=== PATIENT | female | born 1960 | race Caucasian/White ===

== ENCOUNTER 2016-09-19 06:21 | Outpatient (CLI) | payer OTHER ==
[~2016-09-19] VITALS: Ht 175.3 cm; Wt 96.8 kg
[~2016-09-19 06:21] MED LIST: CEFU250S PO; FERR-74 PO; HYDR-3731 PO; HYDR-3820 PO; IBUP-2055 PO; METHIMAZOLE PO; METO50TA7 PO; PRD20T PO
--- OUTSIDE RECORDS SUMMARY | 2016-09-19 06:24 | XMS REPORT | Continuity of Care Document ---
Author Author [facility] Organization [facility] Address Unknown Phone Unavailable Care Team Providers Care Plastic Parts Designer Name Role Phone PCP Unavailable Source Comments Some departments are not documenting in the electronic medical record. If you do not see the information that you expected, contact Release of Information in the Health Information Management department at [phone] for further assistance in locating additional records.[facility] Active Allergies and Adverse Reactions Not on File Current Medications Not on file Active Problems Not on file Social History Tobacco Use Types Packs/Day Years Used Date Never Assessed Plan of Care Health Maintenance Due Date Last Done Comments Physical (Comprehensive) 1968 Exam Pertussis Vaccine 1972 Tetanus Vaccine 1978 Cervical Cancer Screening 1982 Breast Cancer Screening 2001 Colorectal Cancer 2011 Screening Influenza Vaccine 05/11/2016 Results from Last 3 Months Not on file
[2016-09-19] MEDS ORDERED: DOCU100T7 PO (14:11)
== END 2016-09-19 14:16 ==
LOC: PREOP 06:21
PROVIDERS: ATTEND Otolaryngology Otolaryngology/Facial Plastic Surgery
DX: Z01.818 Encounter for other preprocedural examination (principal); K11.5 Sialolithiasis

== ENCOUNTER 2016-09-21 07:16 | Day surgery (SDC) | payer OTHER ==
[~2016-09-21] VITALS: Ht 175.3 cm; Wt 96.8 kg
[~2016-09-21 07:16] MED LIST changes: +DOCU100T7 PO
--- OUTSIDE RECORDS SUMMARY | 2016-09-21 07:20 | XMS REPORT | Continuity of Care Document ---
Author Author [facility] Organization [facility] Address Unknown Phone Unavailable Care Team Providers Care Sap Bobj Developer Name Role Phone PCP Unavailable Source Comments Some departments are not documenting in the electronic medical record. If you do not see the information that you expected, contact Release of Information in the Health Information Management department at [phone] for further assistance in locating additional records.[facility] Active Allergies and Adverse Reactions Not [...]
--- OUTSIDE RECORDS SUMMARY | 2016-09-21 07:21 | XMS REPORT | Continuity of Care Document ---
Author Author [facility] Organization [facility] Address Unknown Phone Unavailable Care Team Providers Care Epic Prelude Analyst Name Role Phone PCP Unavailable Source Comments Some departments are not documenting in the electronic medical record. If you do not see the information that you expected, contact Release of Information in the Health Information Management department at [phone] for further assistance in locating additional records.[facility] Active Allergies and Adverse Reactions Not [...]
[2016-09-21 07:43] LABS: BASOPHILS % (AUTO) 0 % (0-10); EOSINOPHILS % (AUTO) 0 % (0-10); LYMPHOCYTES # (AUTO) 1.4 X 10^3 (1.0-4.0); LYMPHOCYTES % (AUTO) 28 % (12-44); MEAN CORPUSCULAR HEMOGLOBIN 20 PG (25-34); MEAN CORPUSCULAR HGB CONC 29 G/DL (32-36); MEAN CORPUSCULAR VOLUME 69 FL (80-99); MEAN PLATELET VOLUME 9.1 FL (7.4-10.4); MONOCYTES # (AUTO) 0.3 X 10^3 (0.0-1.0); MONOCYTES % (AUTO) 6 % (0-12); NEUTROPHILS # (AUTO) 3.4 X 10^3 (1.8-7.8); NEUTROPHILS % (AUTO) 66 % (42-75); PLATELET COUNT 304 10^3/uL (130-400); RED BLOOD COUNT 4.57 10^6/uL (4.35-5.85); WHITE BLOOD COUNT 5.2 10^3/uL (4.3-11.0)
[2016-09-21] MEDS: LACTATED RINGERS 1,000 ML IV PRN ×2 (07:45→09:45)
--- NOTE | 2016-09-21 07:58 | Progress Note-Pre Operative ---
Pre-Operative Progress Note H&P Reviewed The H&P was reviewed, patient examined and no changes noted. Date H&P Reviewed: Sep 21, 2016 Time H&P Reviewed: 07:50 Pre-Operative Diagnosis: Right Submandibular Duct Stone ALLISON RENNER MD Sep 21, 2016 7:58 am
[2016-09-21] MEDS ORDERED: LIDOCAINE/EPI 1%-1:100,000 (XYLOCAINE) 20ML ONE (08:05)
[2016-09-21] MEDS ORDERED: MUPIROCIN 2% OINT 22 GM (BACTROBAN) TUBE ONE (08:05)
[2016-09-21 08:06] LABS: ANION GAP 11 MMOL/L (5-14); BLOOD UREA NITROGEN 11 MG/DL (7-18); BUN/CREATININE RATIO 16; CALCIUM 9.3 MG/DL (8.5-10.1); CARBON DIOXIDE 22 MMOL/L (21-32); CHLORIDE 109 MMOL/L (98-107); CREATININE SERUM 0.69 MG/DL (0.60-1.30); GFR ESTIMATED > 60; GLUCOSE 91 MG/DL (70-105); POTASSIUM 3.7 MMOL/L (3.6-5.0); SODIUM 142 MMOL/L (135-145)
[2016-09-21] MEDS ORDERED: ONDANSETRON 4 MG/2 ML (SDV) Z0FRAN ONE ×2 (08:16→10:39)
[2016-09-21] MEDS ORDERED: DEXAMETHASONE PF 10 MG/ML (DECADRON) VIAL ONE ×2 (08:16→09:39)
[2016-09-21] MEDS ORDERED: MIDAZOLAM 2 MG/2 ML (VERSED) VIAL ONE (08:16)
[2016-09-21] MEDS ORDERED: LIDOCAINE PF 2% 10 ML (XYLOCAINE) AMP ONE (08:16)
[2016-09-21] MEDS ORDERED: proPOfol 200 MG/20 ML (DIPRIVAN) VIAL IV ONE (08:16)
[2016-09-21] MEDS ORDERED: fentaNYL INJECTION 100 MCG/2 ML AMP ONE ×2 (08:17→09:58)
[2016-09-21] MEDS ORDERED: SEVOFLURANE (ULTANE) 15 ML INHAL SOLN ONE ×5 (08:23→10:21)
[2016-09-21] MEDS ORDERED: LACTATED RINGERS 1,000 ML IV ONE ×2 (08:23→10:21)
[2016-09-21 08:27] VITALS: BP 148/86
[2016-09-21] MEDS ORDERED: GLYCOPYRROLATE 0.2 MG/ML (ROBINUL) 2 ML VIAL ONE (10:04)
[2016-09-21] MEDS ORDERED: NEOSTIGMINE (BLOXIVERZ ) 1 MG/1ML 10 ML VIAL ONE (10:04)
[2016-09-21] MEDS ORDERED: NS IV 1000 ML 1,000 ML IV SCH (10:12)
--- NOTE | 2016-09-21 10:12 | Progress Note-Post Operative ---
Post-Operative Progess Note Pre-Operative Diagnosis Right Submandibular Duct Stone Post-Operative Diagnosis same Post-Op Procedure Note Date of Procedure: Sep 21, 2016 Name of Procedure: Intraoral Excision of Right Submandibular Duct STone Anesthesia Type get Estimated blood loss (mL): minimal Specimen(s) collected Right Submandibular Duct STone ALLISON RENNER MD Sep 21, 2016 10:12 am
[2016-09-21] MEDS ORDERED: HYDROcodone/APAP 5 MG/325 MG (LORTAB) TAB PO PRN (10:15)
[2016-09-21] MEDS ORDERED: APAP 325 MG/10.15 ML LIQ (TYLENOL) UDC PO PRN (10:15)
[2016-09-21] MEDS ORDERED: LIDOCAINE/EPI 1%-1:100,000 (XYLOCAINE) 20ML INJ ONE (10:30)
[2016-09-21] MEDS ORDERED: MEPERIDINE (DEMEROL) INJ 50 MG/ML IV PRN (10:45)
[2016-09-21] MEDS ORDERED: PROMETHAZINE INJ 25 MG/ML (PHENERGAN) AMP IV PRN (10:45)
[2016-09-21] MEDS ORDERED: ONDANSETRON 4 MG/2 ML (SDV) Z0FRAN IV PRN (10:45)
[2016-09-21] MEDS ORDERED: morphine INJ 10 MG/ML 1ML (SYR OR VIAL) IV PRN (10:45)
[2016-09-21] MEDS ORDERED: fentaNYL INJECTION 250 MCG/5 ML AMP IV PRN (10:45)
[2016-09-21 11:20] VITALS: BP 160/92
[2016-09-21 11:50] VITALS: BP 152/85
[2016-09-21 12:20] VITALS: BP 142/78
[2016-09-21 13:45] VITALS: BP 142/78
== END 2016-09-21 13:45 | disposition home or self-care (01) ==
LOC: SDC 07:16
PROVIDERS: ATTEND Otolaryngology Otolaryngology/Facial Plastic Surgery
DX: K11.5 Sialolithiasis (principal)
CPT/HCPCS: 36415; 80048; 84703; 85025; 87081

== ENCOUNTER → 2017-07-23 | Outpatient (CLI) | payer OTHER ==
[~2017-07-23] MED LIST changes: +BARIUM SUSPENSION 2.1% (VANILLA SILQ) 450 ML PO ONE; +CATHETER FLUSH 10 ML SYR IV PRN; +IOHEXOL 350 MG/ML 100 ML (OMNIPAQUE 350) VIAL IV ONE; +NS 100 ML (IVPB) BAG IV ONE
--- NOTE | 2017-07-23 16:18 | Diagnostic Imaging Report ---
PROCEDURE: CT chest, abdomen, and pelvis with contrast. TECHNIQUE: Multiple contiguous axial images were obtained through the chest, abdomen, and pelvis after the administration of intravenous contrast. INDICATION: Pelvic mass. Bilateral ovarian cysts. 100 mL of Omnipaque 350 is administered intravenously. FINDINGS: CT chest: The lungs demonstrate no significant consolidation, mass, or suspicious nodule. The heart size is at the upper limits of normal. No effusion or pneumothorax. The thoracic aorta is normal in caliber. There is anterior mediastinal soft tissue density which appears to represent thymic tissue. 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 No mass effect or focal mass to suggest a thymic neoplasm. There is otherwise no mediastinal lymphadenopathy. No hilar or axillary lymphadenopathy. The osseous structures appear grossly unremarkable. CT abdomen and pelvis: There is a hypodense lesion in the lower aspect of segment IVb in the liver measuring 8 mm in size, too small to accurately characterize. The gallbladder, the spleen, and the adrenal glands appear unremarkable. The pancreas appears unremarkable. The kidneys have symmetric enhancement and contrast excretion. There is no hydronephrosis. There is a fat-density lesion measuring 1.4 cm in the lower pole of the left kidney suggestive of angiomyolipoma. The abdominal aorta is normal in caliber. No para-aortic significantly enlarged lymph node is seen. In the pelvis, there is a large mass abutting the anterior margin of the uterus measuring 11 x 10 x 10 cm likely representing a fibroid. There is suggestion of bilateral minimally prominent ovarian follicles. The appendix appears normal. No bowel obstruction. No significant free fluid or fluid collection in the abdomen or pelvis is seen. There is a tiny fat-containing umbilical hernia. The osseous structures demonstrate mild facet joint arthropathy in the mid and lower lumbar spine. 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 CT abdomen and pelvis: 1. A 11 cm uterine mass abutting the anterior margin of the uterus is probably a large fibroid. 2. Tiny fat-containing umbilical hernia. Dictated by: Dictated on workstation # [id number]
== END ==
LOC: RAD 13:26
PROVIDERS: ATTEND Obstetrics & Gynecology
DX: N85.8 Other specified noninflammatory disorders of uterus (principal); R92.8 Other abnormal and inconclusive findings on diagnostic imaging of breast
CPT/HCPCS: 71260; 74177

== ENCOUNTER → 2017-07-31 | Outpatient (CLI) | payer OTHER ==
[~2017-07-31] MED LIST changes: -BARIUM SUSPENSION 2.1% (VANILLA SILQ) 450 ML PO ONE; -CATHETER FLUSH 10 ML SYR IV PRN; -IOHEXOL 350 MG/ML 100 ML (OMNIPAQUE 350) VIAL IV ONE; -NS 100 ML (IVPB) BAG IV ONE
== END ==
LOC: RAD 08:33
PROVIDERS: ATTEND Obstetrics & Gynecology
DX: Z12.31 Encounter for screening mammogram for malignant neoplasm of breast (principal)
CPT/HCPCS: 77067

== ENCOUNTER → 2017-08-03 | Outpatient (CLI) | payer OTHER ==
--- NOTE | 2017-08-03 11:28 | Diagnostic Imaging Report ---
PROCEDURE: CT abdomen and pelvis without contrast. TECHNIQUE: Multiple contiguous axial images were obtained through the abdomen and pelvis without the use of intravenous contrast. INDICATION: Hematuria. COMPARISON: Comparison with 07/23/2017, contrasted study. FINDINGS: Noncontrasted study shows no evidence of hydronephrosis. Renal outlines are smooth with no perinephric fluid. No hydronephrosis. No calculi are seen. Calcification noted in the proximal pelvis on the right was demonstrated to be a phlebolith extrinsic to the right ureter. Large pelvic mass is again noted as described previously, again most likely representing large uterine fibroid. Bladder appears normal. The lung bases are clear. The abdominal organs and vessels are unchanged when compared with 07/23/2017 exam. The appendix remains normal. Bowel gas pattern is normal. IMPRESSION: No significant change has occurred when compared with 07/23/2017 exam. Dictated by: Dictated on workstation # [id number]
== END ==
LOC: RAD 09:26
PROVIDERS: ATTEND Urology
DX: R31.9 Hematuria, unspecified (principal)
CPT/HCPCS: 74176

== ENCOUNTER 2017-08-15 05:32 | Outpatient (CLI) | payer OTHER ==
[~2017-08-15] VITALS: Ht 175.3 cm; Wt 86.0 kg
[2017-08-15 12:13] VITALS: BP 154/89
[2017-08-15 13:04] LABS: BASOPHILS % (AUTO) 0 % (0-10); EOSINOPHILS % (AUTO) 0 % (0-10); LYMPHOCYTES # (AUTO) 2.1 X 10^3 (1.0-4.0); LYMPHOCYTES % (AUTO) 35 % (12-44); MEAN CORPUSCULAR HEMOGLOBIN 27 PG (25-34); MEAN CORPUSCULAR HGB CONC 34 G/DL (32-36); MEAN CORPUSCULAR VOLUME 79 FL (80-99); MEAN PLATELET VOLUME 10.8 FL (7.4-10.4); MONOCYTES # (AUTO) 0.6 X 10^3 (0.0-1.0); MONOCYTES % (AUTO) 10 % (0-12); NEUTROPHILS # (AUTO) 3.3 X 10^3 (1.8-7.8); NEUTROPHILS % (AUTO) 55 % (42-75); PLATELET COUNT 202 10^3/uL (130-400); RED BLOOD COUNT 5.13 10^6/uL (4.35-5.85); RED CELL DISTRIBUTION WIDTH 13.2 % (10.0-14.5); WHITE BLOOD COUNT 5.9 10^3/uL (4.3-11.0)
== END 2017-08-15 13:15 | disposition home or self-care (01) ==
LOC: PREOP 05:32
PROVIDERS: ATTEND Obstetrics & Gynecology
DX: Z01.812 Encounter for preprocedural laboratory examination (principal); Z11.2 Encounter for screening for other bacterial diseases; N81.4 Uterovaginal prolapse, unspecified; N39.3 Stress incontinence (female) (male); D64.9 Anemia, unspecified
CPT/HCPCS: 36415; 85025; 86850; 86900; 86901; 87081

== ENCOUNTER → 2017-08-15 | Outpatient (CLI) | payer OTHER ==
--- NOTE | 2017-08-15 08:43 | Diagnostic Imaging Report ---
EXAMINATION: Right breast ultrasound. INDICATION: New calcifications in the upper central aspect of the right breast. FINDINGS: There is a simple appearing cyst measuring 1.3 cm in size located at the 1:30 o'clock position 5 cm from the nipple. The retroareolar region and 4 quadrants demonstrate no suspicious lesion otherwise. IMPRESSION: No suspicious mass. The new calcifications in the upper central aspect of the right breast are indeterminate. A stereotactic biopsy is recommended for the low suspicion of malignancy. The report was faxed to the office of Dr. Hays by OLGA LIDIA@8:45 AM. ACR BI-RADS Category 4A: Low suspicion of malignancy Dictated by: Dictated on workstation # [id number]
--- NOTE | 2017-08-15 10:12 | Diagnostic Imaging Report ---
EXAMINATION: Right breast diagnostic mammogram with tomography evaluation. The current study was also evaluated with a Computer Aided Detection (CAD) system. INDICATION: Evaluate calcifications of the central slightly superior aspect of the right breast. FINDINGS: Compression magnification views demonstrate clustered calcifications in the superior central aspect of the right breast. No definite underlying mass is seen. There is no significant heterogeneity. IMPRESSION: Indeterminate clustered microcalcifications in the central slightly superior aspect of the right breast. An ultrasound evaluation is pending. ACR BI-RADS Category 0: Incomplete. (Needs additional imaging evaluation). Result letter will be mailed to the patient. Note: At least 10% of breast cancer is not imaged by mammography. Dictated by: Dictated on workstation # [id number]
== END ==
LOC: RAD 07:19
PROVIDERS: ATTEND Obstetrics & Gynecology
DX: R92.8 Other abnormal and inconclusive findings on diagnostic imaging of breast (principal)
CPT/HCPCS: 76641

== ENCOUNTER 2017-08-24 09:25 | Day surgery (SDC) | payer OTHER ==
[~2017-08-24] VITALS: Ht 175.3 cm; Wt 86.0 kg
[2017-08-24 09:30] VITALS: BP 151/84
[2017-08-24] MEDS: LACTATED RINGERS 1,000 ML IV PRN ×2 (09:50→11:30)
[2017-08-24] MEDS ORDERED: CATHETER FLUSH 10 ML SYR IV PRN (10:00)
[2017-08-24] MEDS ORDERED: ceFAZolin 1 GM/NS 50 ML IVPB IV ONE ×2 (10:00)
[2017-08-24] MEDS ORDERED: ONDANSETRON 4 MG/2 ML (SDV) Z0FRAN ONE (10:05)
[2017-08-24] MEDS ORDERED: MIDAZOLAM 2 MG/2 ML (VERSED) VIAL ONE (10:05)
[2017-08-24] MEDS ORDERED: ROCURONIUM 50 MG/5 ML (ZEMURON) VIAL IV ONE ×3 (10:05→12:49)
[2017-08-24] MEDS ORDERED: fentaNYL INJECTION 100 MCG/2 ML AMP ONE ×4 (10:05→13:18)
[2017-08-24] MEDS ORDERED: LIDOCAINE PF 2% 5 ML (XYLOCAINE) VIAL ONE (10:05)
[2017-08-24] MEDS ORDERED: proPOfol 200 MG/20 ML (DIPRIVAN) VIAL IV ONE (10:05)
[2017-08-24] MEDS ORDERED: SEVOFLURANE (ULTANE) 15 ML INHAL SOLN ONE ×10 (10:07→13:11)
[2017-08-24 10:08] LABS: BASOPHILS % (AUTO) 0 % (0-10); EOSINOPHILS % (AUTO) 0 % (0-10); LYMPHOCYTES # (AUTO) 1.9 X 10^3 (1.0-4.0); LYMPHOCYTES % (AUTO) 23 % (12-44); MEAN CORPUSCULAR HEMOGLOBIN 27 PG (25-34); MEAN CORPUSCULAR HGB CONC 34 G/DL (32-36); MEAN CORPUSCULAR VOLUME 79 FL (80-99); MEAN PLATELET VOLUME 10.7 FL (7.4-10.4); MONOCYTES # (AUTO) 0.5 X 10^3 (0.0-1.0); MONOCYTES % (AUTO) 7 % (0-12); NEUTROPHILS # (AUTO) 5.7 X 10^3 (1.8-7.8); NEUTROPHILS % (AUTO) 70 % (42-75); PLATELET COUNT 183 10^3/uL (130-400); RED BLOOD COUNT 4.76 10^6/uL (4.35-5.85); RED CELL DISTRIBUTION WIDTH 12.6 % (10.0-14.5); WHITE BLOOD COUNT 8.1 10^3/uL (4.3-11.0)
[2017-08-24] MEDS ORDERED: BUP/EPI 0.5% 1:200,000 (MARCAINE) 10ML VIAL IJ ONE (10:16)
[2017-08-24] MEDS ORDERED: ESTRADIOL VAGINAL CREAM 42.5 GM (ESTRACE) VG ONE (10:16)
[2017-08-24] MEDS ORDERED: ceFAZolin INJECTION 1,000 MG in NS (IVPB) 50 ML IV ONE (10:45)
--- NOTE | 2017-08-24 10:45 | Progress Note-Pre Operative ---
Pre-Operative Progress Note H&P Reviewed The H&P was reviewed, patient examined and no changes noted. Date Seen by Provider: Aug 24, 2017 Time Seen by Provider: 10:44 Date H&P Reviewed: Aug 24, 2017 Time H&P Reviewed: 10:44 Pre-Operative Diagnosis: complex pelvic mass/uterovaginal prolapse/stress incontinence JASON GALVEZ MD Aug 24, 2017 10:45 am
--- NOTE | 2017-08-24 10:46 | Progress Note-Post Operative ---
Post-Operative Progess Note Surgeon (s)/Assembly Technician (s) Surgeon JASON GALVEZ MD Assembly Technician: Velia Michel Pre-Operative Diagnosis complex pelvic mass/uterovaginal prolapse/stress incontinence Post-Operative Diagnosis ssame with pathology pending Procedure & Operative Findings Date of Procedure 08/24/17 Procedure Performed/Findings total laparoscopic hysterectomy/BSO/A&P repair Anesthesia Type Gen. Estimated Blood Loss Estimated blood loss (mL): 450cc Specimens/Packing Specimens Removed uterus/tubes/ovaries Packing: Kerlix to the vagina JASON GALVEZ MD Aug 24, 2017 10:46
[2017-08-24] MEDS ORDERED: IBUP-1780 PO (10:49)
[2017-08-24] MEDS ORDERED: OXYC-465 PO (10:49)
[2017-08-24] MEDS ORDERED: ESTR1TAB27 PO (10:49)
--- NOTE | 2017-08-24 10:51 | Discharge Instructions ---
Discharge Instructions Discharge Medications New, Converted or Re-Newed RX: RX on Chart Patient Instructions Patient Instructions: aas directed Return to The Hospital For: as directed Activity & Diet Discharge Diet: No Restrictions Activity as Tolerated: Yes Orders-Post D/C & Referrals Follow Up Appt: return to clinic on Sunday, August 27, 2017 at 930 a.m. for staple removal Call to make follow up appt. for patient in 4 weeks. follow-up with Dr. Nick per his instructions Activity: Rest for 24 hours, than as tolerated. Wound Care: May remove Band-Aid tomorrow. Replace as desired. Keep incisions clean and dry. Wash daily with soap and water. Please call in RX to patient pharmacy. Diet: As tolerated-Clear Liquids only if nauseated. May shower or tub bathe as desired. No driving for 24 hours, no alcoholic beverages for 24 hours, and nothing per vagina (no tampons, douching, or intercourse) for 2 weeks. Patient to return to the clinic as soon as possible for: Temperature greater than 101F, Severe Pain, Foul discharge from incision or vagina, Excessive Bleeding (more than a period). JASON GALVEZ MD Aug 24, 2017 10:51 am
[2017-08-24] MEDS ORDERED: MEPERIDINE (DEMEROL) INJ 100 MG/ML IM PRN (11:00)
[2017-08-24] MEDS ORDERED: KETOROLAC 30 MG/ML VIAL IVP SCH (11:00)
[2017-08-24] MEDS ORDERED: ESTROGENS CONJ IV 25 MG/5 ML (PREMARIN) VIAL IVP ONE (11:00)
[2017-08-24] MEDS ORDERED: oxyCODONE/APAP 10/325MG (PERCOCET 10) TABLET PO PRN (11:00)
[2017-08-24] MEDS ORDERED: WATER (STERILE) FOR INJ 10 ML BTL INJ ONE (11:00)
[2017-08-24] MEDS ORDERED: BENZOCAINE/MENTHOL (DERMOPLAST) 56 ML CAN TP PRN (11:00)
[2017-08-24] MEDS ORDERED: ONDANSETRON 4 MG/2 ML (SDV) Z0FRAN IVP PRN ×2 (11:00→14:00)
[2017-08-24] MEDS ORDERED: PROMETHAZINE INJ 25 MG/ML (PHENERGAN) AMP IM PRN (11:00)
[2017-08-24] MEDS ORDERED: meTOprolol 5 MG/5 ML (LOPRESSOR) VIAL ONE (11:59)
[2017-08-24] MEDS ORDERED: NEOSTIGMINE (BLOXIVERZ ) 1 MG/1ML 10 ML VIAL ONE (13:09)
[2017-08-24] MEDS ORDERED: GLYCOPYRROLATE 0.2 MG/ML (ROBINUL) 2 ML VIAL ONE (13:09)
[2017-08-24] MEDS ORDERED: DEXAMETHASONE 10 MG/ML (DECADRON) 1 ML VIAL ONE (13:12)
[2017-08-24] MEDS ORDERED: KETOROLAC 30 MG/ML VIAL ONE (13:17)
[2017-08-24] MEDS ORDERED: WATER (STERILE) FOR INJECTION 10 ML ONE (13:18)
[2017-08-24] MEDS ORDERED: ESTROGENS CONJ IV 25 MG/5 ML (PREMARIN) VIAL ONE (13:18)
[2017-08-24] MEDS ORDERED: morphine INJ 10 MG/ML 1ML (SYR OR VIAL) ONE (13:20)
[2017-08-24] MEDS ORDERED: MEPERIDINE (DEMEROL) INJ 50 MG/ML IVP PRN (14:00)
[2017-08-24] MEDS: morphine INJ 10 MG/ML 1ML (SYR OR VIAL) IVP PRN ×2 (14:00→14:10)
[2017-08-24] MEDS ORDERED: PROMETHAZINE INJ 25 MG/ML (PHENERGAN) AMP IVP PRN (14:00)
[2017-08-24] MEDS ORDERED: HYDROmorphone (DILAUDID) 2 MG/ML VIAL IVP PRN (14:00)
[2017-08-24 15:00] VITALS: BP 146/86
[2017-08-24] MEDS: D5 LR IV SOLUTION 1,000 ML IV SCH ×3 (15:00→23:12)
[2017-08-24] MEDS ORDERED: D5 LR IV SOLUTION 1,000 ML IV ONE (15:14)
[2017-08-24 18:04] VITALS: BP 147/89
[2017-08-24 20:00] VITALS: BP 143/73
[2017-08-24] MEDS: KETOROLAC 30 MG/ML VIAL IVP SCH (20:08)
--- NOTE | 2017-08-24 22:28 | OPERATIVE REPORT ---
DATE OF SERVICE: 08/24/2017 PREOPERATIVE DIAGNOSIS: On my part, urinary incontinence. POSTOPERATIVE DIAGNOSIS: On my part, urinary incontinence. OPERATION PERFORMED: Pubovaginal sling and cystoscopy. SURGEON: Shay Cullen MD. YOUTH DIRECTOR: Todd Hays MD. ANESTHESIA: General. COMPLICATIONS: None. PROCEDURE: Under satisfactory general anesthesia and after Dr. Hays performed the first part of his surgery that he will dictate, I went ahead and inserted a Hernandez catheter, draining clear urine. I passed the Solyx device over the sling on both sides using the described technique. The sling was sitting nicely under the mid urethra. There was no twisting, no tension and passage of a curved hemostat easily between it and the underlying tissue. I removed the Hernandez catheter, performed cystoscopy to confirm the integrity of the bladder, ureters, urethra and no foreign body. I left the bladder over half fold to perform a manual Valsalva maneuver that was negative. I reinserted the catheter. Estimated blood loss for my part negligible and Dr. Hays proceeded with the rest of his surgery that he will dictate. Job ID: [id number] DocumentID: [id number] Dictated Date: 08/24/2017 13:17:43 Merchandise Presentation Associate Date: 08/24/2017 22:01:50 Dictated By: SHAY CULLEN MD
[2017-08-25 00:15] VITALS: BP 139/65
--- NOTE | 2017-08-25 00:29 | OPERATIVE REPORT ---
DATE OF SERVICE: 08/24/2017 PREOPERATIVE DIAGNOSES: Dysfunctional uterine bleeding and uterovaginal prolapse and stress urinary incontinence and large pelvic mass. POSTOPERATIVE DIAGNOSES: Dysfunctional uterine bleeding and uterovaginal prolapse and stress urinary incontinence and large pelvic mass with likely large fibroid and pathology pending. OPERATIVE PROCEDURE: Total laparoscopic hysterectomy with bilateral salpingo-oophorectomy, anterior and posterior vaginal repairs with enterocele repair as well as Dr. Nick performing a pubovaginal sling and cystoscopy. OPERATIVE DESCRIPTION: With the patient in the supine position under satisfactory general anesthesia, she was repositioned in dorsal lithotomy position in the [facility] and prepped and draped in the usual fashion for abdominal and vaginal surgery. Hernandez catheter was placed in the urinary bladder. Speculum was placed in the vagina, cervix exposed and grasped anteriorly with single tooth tenaculum. The cervix was dilated with Leon dilators and then a Neena II manipulator was placed in the usual manner with #1 Vicryl sutures at 3 and 9 o'clock position of the cervix to affix the uterus to the manipulator and with a 6 mm x 8 cm uterine probe and a 30 mm colpotomy ring. The cervix prolapsed completely outside the introitus. The bladder prolapsed just outside the introitus as well. The patient was brought in low dorsolithotomy position. A 12 mm incision made at 3 cm superior to the umbilicus, 8 mm incisions were made 9 cm lateral to the umbilicus on each side. All incision sites were infiltrated with 0.25% Marcaine with epinephrine prior to incision. Veress needle was placed through the midline incision. The abdomen insufflated with 2.4 liters of carbon dioxide. Veress needle was removed and the laparoscopic ports were placed in the usual manner. Laparoscope was introduced. Two other ports were placed under direct vision after the laparoscope was in. The patient was placed in Trendelenburg allowing the bowel to spill up out of the pelvis. The operative instruments were prepared and attached and hysterectomy was initiated by first examining the pelvis. This was somewhat difficult because there was an exceedingly large uterine fibroid on the fundus of the uterus. That could be swept to one side, anterior or posterior, the balance of the pelvis looked normal as did the ovaries. A fourth port was placed between the midline port and the right port for the manipulator for the insurance sales assistant to use with help to position and retract the big uterus. Using a vessel sealer, the right fallopian tube and ovary were grasped and elevated. The ureter was seen medial to the IP ligament. The IP ligament was clamped, cauterized and divided and was continued stepwise across the mesovarium to the round ligament across the broad ligament down to the cardinal ligament, which was all treated in the same manner. The same procedure performed on the left. There was some manipulation required in order to distribute the uterus in a manner that would allow access to each side of the uterus. The uterus was now retroverted. The anterior lower uterine segment exposed and using a monopolar shear, the bladder peritoneum was opened and the bladder carefully dissected down off the lower uterine segment. A colpotomy incision was started at 12 o'clock position and continued circumferentially until the entire colpotomy ring was exposed. Again, this required some positioning and manipulation secondary to the very large bundle likely fibroid, pathology of courses spinning on that. The uterus once completely free, it was extracted through the vagina. Again, this was somewhat complicated due to the large fibroid, but with gentle and persistent manipulation, the uterus was milked out through the vagina. The vaginal cuff was then closed with 3 sutures of V-Loc barbed sutures starting first on the right angle and continuing almost to the midpoint and from the left angle almost to the midpoint and from the midpoint closing the balance of the cuff with a third suture and reapproximating the bladder peritoneum over the suture. Care was taken to include the terminus of the uterine vessels on each side with the initiation of the suture that started on each side of the vaginal cuff. Care was also taken to advance the uterus, the vaginal cuff up onto the uterosacral ligaments bilaterally to elevate the apex of the vagina. The pelvis was irrigated and examined for hemostasis. With that being complete and seen both ureters peristalsing and being clear up the sutures and of the dissection we had done, the laparoscopic portion of the procedure was terminated. The operative instruments were removed as were the ports. The abdomen was evacuated of insufflating gas. The patient brought out of Trendelenburg. The skin incisions were stapled and the fascia at the umbilical incision was closed with a [id number] suture of 2-0 Vicryl. The patient now repositioned in the dorsal lithotomy position for vaginal portion of the surgery. Weighted speculum placed in the posterior fornix of the vagina. The anterior vaginal wall was grasped with two Chavez clamps. Incision was made in the vaginal wall in the midline and that was continued from the approximately a cm from urethral meatus to the apex of the vagina with very careful dissection was taken to separate and develop the vesicovaginal space. Sutures now of 2-0 Vicryl were used to plicate the endopelvic fascia and bladder wall, allowing the bladder back up into the pelvis, supporting the bladder neck. Dr. Nick assumed care of the patient at this point, placed his pubovaginal sling and performed a cystoscopy with no abnormal findings and then I resumed care of the patient. I had remained to assist with Dr. Nick's portion of the procedure. I resumed care, resected the redundant anterior vaginal wall muscularis and mucosa and then closed the vaginal wall with a running locked suture of 2-0 Vicryl. Hemostasis was complete. Good support was evident. Posterior repair was now affected by placing Chavez clamps on the perineum and the hymenal ring at 5 and 7 o'clock position. The inverted triangle of the skin was removed from the perineal body and upright triangle from the posterior vaginal floor. The rectovaginal space was entered sharply and bluntly dissected to the apex of the vagina where it was explored, finding a small enterocele that was reduced and then plicated with pursestring sutures of 2-0 Vicryl. The rectovaginal space was obliterated with additional sutures of 2-0 Vicryl. Perineal body was restored with 2-0 Vicryl. Redundant posterior vaginal wall muscularis and mucosa were removed sharply and the vaginal wall was closed with a running locked suture of 3-0 Vicryl Rapide and closure was continued past the hymenal ring down on the perineal body and then back up subcutaneous where it was tied at the hymenal ring. Digital rectal exam confirmed no stricture or stenosis of the rectum and no sutures into or through the rectal mucosa. The vagina was now filled with Estrace vaginal cream and a pack of Kerlix gauze was placed. Dr. Nick will place Hernandez catheter to dependent drains at the completion of his portion of the procedure that was remaining out to dependent drainage. The patient was uneventfully awakened from general anesthesia and transferred to recovery room in stable condition. Sponge and needle counts were correct. Estimated blood loss was around 400 mL, a bulk of that from the vaginal repairs as there was very minimal bleeding with the hysterectomy itself. The patient tolerated the procedure well. Job ID: [id number] DocumentID: [id number] Dictated Date: 08/24/2017 14:55:21 Power Generation Plant Operator Date: 08/25/2017 00:28:34 Dictated By: JASON GALVEZ MD
[2017-08-25] MEDS: KETOROLAC 30 MG/ML VIAL IVP SCH (01:45)
[2017-08-25 04:00] VITALS: BP 134/67
[2017-08-25] MEDS ORDERED: SIMETHICONE 80 MG (MYLICON) CHEW ONE (07:56)
[2017-08-25] MEDS ORDERED: SIMETHICONE 80 MG (MYLICON) CHEW PO SCH (08:00)
[2017-08-25 08:03] VITALS: BP 146/81
[2017-08-25] MEDS ORDERED: IBUPROFEN 800 MG (MOTRIN) TAB PO ONE (08:33)
--- NOTE | 2017-08-25 08:39 | Progress Note-Standard ---
Standard Progress Note Progress Notes/Assess & Plan Date Seen by Provider: Aug 25, 2017 Time Seen by Provider: 08:38 Progress/Assessment & Plan this patient is without complaint except for some mild episodic nausea. She is ambulating, she is not voiding as of yet. Patient is tolerating by mouth adequately. Patient denies chest pain, denies shortness of breath, denies headache. Vital Signs Date Time Temp Pulse Resp B/P (MAP) Pulse Ox O2 Delivery O2 Flow Rate FiO2 08/25/17 08:03 99.8 104 20 146/81 (102) 97 Room Air 08/25/17 06:10 99.0 08/25/17 04:00 99.0 116 16 134/67 (89) 96 Room Air 08/25/17 01:40 99.1 08/25/17 00:15 100.8 111 16 139/65 (89) 97 Room Air 08/24/17 20:00 98.4 110 18 143/73 (96) Room Air 08/24/17 19:05 Room Air 08/24/17 18:04 98.5 109 18 147/89 (108) 98 Room Air 08/24/17 15:00 98.3 90 18 146/86 (106) 99 Room Air 08/24/17 14:00 97.8 08/24/17 09:30 97.8 101 18 151/84 (106) 97 Room Air I & O 08/25/17 07:00 Intake Total 5347 ml Output Total 1400 ml Balance 3947 ml Vital signs are stable. Patient is afebrile. The abdomen is benign. Bowel sounds are present. Extremities show no clubbing cyanosis. There is no Homans sign. Assessment and plan postoperative day number 1 doing well. Plan is for routine convalescence care today and discharge home when ambulating, voiding, tolerating by mouth well, and was good pain control. Final Diagnosis uterovaginal prolapse JASON GALVEZ MD Aug 25, 2017 8:39 am
[2017-08-25] MEDS ORDERED: DOCUSATE SODIUM 100 MG (COLACE) CAP PO SCH (09:00)
[2017-08-25] MEDS ORDERED: ESTRADIOL 1 MG TAB (ESTRACE) PO SCH (09:00)
--- NOTE | 2017-08-25 11:19 | Progress Note-Urology ---
Progress Note-Urology Progress Notes/Assess & Plan Progress/Assessment & Plan VOIDING WELL. FEELS EMPTY. DRY. HAPPY. PVR 118CC. HOME WITH INSTRUCTIONS Final Diagnosis INCONTINENCE SHAY CULLEN MD Aug 25, 2017 11:19 am
--- NOTE | 2017-08-25 12:31 | Anesthesia-General Post-Op ---
General Patient Condition Mental Status/LOC: Same as Preop Cardiovascular: Satisfactory Nausea/Vomiting: Absent Respiratory: Satisfactory Pain: Controlled Complications: Absent Post Op Complications Complications None Follow Up Care/Instructions Patient Instructions None needed. Anesthesia/Patient Condition Patient Condition Patient is doing well, no complaints, stable vital signs, no apparent adverse anesthesia problems. No complications reported per nursing. D/C home per [facility] [place] [facility] [place] Criteria: Yes JOHN MCALLISTER CRNA Aug 25, 2017 12:31
[2017-08-25] MEDS ORDERED: IBUPROFEN 800 MG (MOTRIN) TAB PO SCH (14:00)
== END 2017-08-25 12:10 | disposition home or self-care (01) ==
LOC: SDC 09:25 → WS 15:31 → SDC 08-25 12:10
PROVIDERS: ATTEND Obstetrics & Gynecology
DX: D25.1 Intramural leiomyoma of uterus (principal); D25.2 Subserosal leiomyoma of uterus; N80.0 Endometriosis of uterus; N83.201 Unspecified ovarian cyst, right side; N83.202 Unspecified ovarian cyst, left side; N83.8 Other noninflammatory disorders of ovary, fallopian tube and broad ligament; N72 Inflammatory disease of cervix uteri; N93.8 Other specified abnormal uterine and vaginal bleeding; N81.4 Uterovaginal prolapse, unspecified; N39.3 Stress incontinence (female) (male)
CPT/HCPCS: 36415; 85025; 94664

== ENCOUNTER → 2017-09-04 | Outpatient (CLI) | payer OTHER ==
[~2017-09-04] MED LIST changes: +ESTR1TAB27 PO; +IBUP-1780 PO; +LIDOCAINE 1% INJ 50 ML (XYLOCAINE) VIAL ONE; +OXYC-465 PO
--- NOTE | 2017-09-04 14:24 | Diagnostic Imaging Report ---
EXAMINATION: Vacuum-assisted stereotactic breast biopsy , with clip placement, and specimen radiographs. INDICATION: Right breast calcifications . CONSENT: Informed consent was obtained from the patient. The risks, benefits, potential complications and alternatives were reviewed and all questions answered to the patient's satisfaction. PROCEDURE: The patient is positioned on the stereotactic mammography machine in sitting position. Prior mammograms were reviewed and based on the position of the calcifications, the appropriate the approach is selected. Initial stereotactic mammographic views at -15 and +15 degrees where performed and confirmation of localization of the lesion is performed. The localization is performed with the stereotactic software assistance and confirmed visually to match the area of interest. After satisfactory localization with initial stereotactic mammographic images, the biopsy tract approach is selected from superior to inferior with the skin site determined. After sterile preparation and draping, 1% lidocaine was utilized for local anesthesia. After confirming the targeted calcifications along the right breast, multiple vacuum-assisted stereotactic biopsies, with 8-gauge core needles, were performed. The specimen radiograph demonstrates calcifications. Subsequently, a marking clip was placed at the site of the biopsy. Subsequently CC and lateral views mammogram is performed and confirms proper positioning of the clip. The patient tolerated the procedure well with no immediate complications. IMPRESSION: Successful stereotactic vacuum-assisted right breast biopsy for calcifications along the central slightly lateral aspect. A marking clip was left in place. The specimen radiograph demonstrates the calcifications. Dictated by: Dictated on workstation # [id number]
== END ==
LOC: CARD 11:45
PROVIDERS: ATTEND Surgery
DX: R92.1 Mammographic calcification found on diagnostic imaging of breast (principal)
CPT/HCPCS: 19081

== ENCOUNTER → 2018-08-13 | Outpatient (CLI) | payer OTHER ==
[~2018-08-13] MED LIST changes: -FERR-74 PO; +FERR325T18 PO; -LIDOCAINE 1% INJ 50 ML (XYLOCAINE) VIAL ONE
--- NOTE | 2018-08-13 20:14 | Diagnostic Imaging Report ---
INDICATION: Routine screening. Comparison is made with prior mammograms from 07/31/2017 and 04/29/2013. 2-D and 3-D bilateral screening mammography was performed with computer-aided detection (CAD) system. FINDINGS: Scattered fibroglandular densities are identified bilaterally. Stereotactic clip in the upper right breast is noted. Previously seen microcalcifications in this area have been stereotactically removed. No new mass or malignant-appearing microcalcifications are seen. The axillae are unremarkable. IMPRESSION: No mammographic features suspicious for malignancy are identified. ACR BI-RADS Category 2: Benign findings. Result letter will be mailed to the patient. Note: At least 10% of breast cancer is not imaged by mammography. Dictated by: Dictated on workstation # [id number]
== END ==
LOC: RAD 13:32
PROVIDERS: ATTEND Obstetrics & Gynecology
DX: Z12.31 Encounter for screening mammogram for malignant neoplasm of breast (principal)
CPT/HCPCS: 77067

== ENCOUNTER → 2020-07-21 | Outpatient (CLI) | payer OTHER ==
[~2020-07-21] MED LIST changes: +ACHYD1T PO; -HYDR-3820 PO; -IBUP-2055 PO; +IBUP-2473 PO; -OXYC-465 PO; +OXYC-556 PO
--- NOTE | 2020-07-21 16:25 | Diagnostic Imaging Report ---
INDICATION: Routine screening. COMPARISON: 08/13/2018 and 07/31/2017. TECHNIQUE: 2D and 3D bilateral screening mammography was performed with CAD. FINDINGS: Both breasts remain heterogeneously dense, limiting the sensitivity of mammography. Post biopsy changes in the right breast are again noted with a marker clip in place. The parenchymal pattern is stable. No new mass or malignant appearing microcalcifications are seen. The axillae are unremarkable. IMPRESSION: No mammographic features suspicious for malignancy are identified. ACR BI-RADS Category 2: Benign findings. Result letter will be mailed to the patient. Note: At least 10% of breast cancer is not imaged by mammography. Dictated by: Dictated on workstation # [id number]
== END ==
LOC: RAD 13:59
PROVIDERS: ATTEND Obstetrics & Gynecology
DX: Z12.31 Encounter for screening mammogram for malignant neoplasm of breast (principal)
CPT/HCPCS: 77063; 77067

== ENCOUNTER → 2021-12-06 | Outpatient (CLI) | payer BC, OTHER ==
--- NOTE | 2021-12-06 13:04 | Diagnostic Imaging Report ---
INDICATION: Routine screening. COMPARISON: 07/21/2020 and 08/13/2018. TECHNIQUE: 2D and 3D bilateral screening mammography was performed with CAD. FINDINGS: Both breasts are heterogeneously dense, limiting the sensitivity of mammography. A biopsy marker clip in the right breast is again noted. The overall parenchymal pattern appears to be stable. No mass or malignant-appearing microcalcifications are seen. The axillae are unremarkable. IMPRESSION: No mammographic features suspicious for malignancy are identified. ACR BI-RADS Category 2: Benign findings. Result letter will be mailed to the patient. Note: At least 10% of breast cancer is not imaged by mammography. Dictated by: Dictated on workstation # [id number]
== END ==
LOC: RAD 09:30
PROVIDERS: ATTEND Family Medicine
DX: Z12.31 Encounter for screening mammogram for malignant neoplasm of breast (principal)
CPT/HCPCS: 77063; 77067

== ENCOUNTER → 2022-12-21 | Outpatient (CLI) | payer BC ==
--- NOTE | 2022-12-21 10:50 | Diagnostic Imaging Report ---
Indication: Routine screening. Comparison is made with prior mammogram from 12/06/2021 and 07/21/2020. 2-D and 3-D bilateral screening mammography was performed with CAD. CAD is utilized. The current study was also evaluated with a Computer Aided Detection (CAD) system. Both breasts are heterogeneously dense, limiting the sensitivity of mammography. A biopsy clip right breast again noted. Nodular density in the medial right breast appears stable. No spiculated mass or malignant-appearing microcalcifications are seen. Axillae are unremarkable. IMPRESSION: BI-RADS Category 2 No mammographic features suspicious for malignancy are identified. ACR BI-RADS Category 2: Benign findings. Result letter will be mailed to the patient. Note: At least 10% of breast cancer is not imaged by mammography. Dictated by: Dictated on workstation # [id number]
== END ==
LOC: RAD 10:30
PROVIDERS: ATTEND Family Medicine
DX: Z12.31 Encounter for screening mammogram for malignant neoplasm of breast (principal)
CPT/HCPCS: 77063; 77067